=== PATIENT | male | born 1970 | race Caucasian/White ===

== ENCOUNTER 2021-10-21 14:39 | Emergency (ER) | payer OTHER | END 2021-10-21 19:00 | disposition left against medical advice (07) | LOC: ER1 14:39 | DX: M79.671 Pain in right foot (principal); F17.200 Nicotine dependence, unspecified, uncomplicated; X50.9XXA Other and unspecified overexertion or strenuous movements or postures, initial encounter | CPT/HCPCS: 99282 ==